=== PATIENT | female | born 1970 | race Caucasian/White ===

== ENCOUNTER 2017-04-30 11:09 | Emergency (ER) | payer MEDICAID ==
[2017-04-30 11:13] VITALS: BP 194/106; PULSE 70; RESP 20; TEMP 98.1; O2SAT 94
[2017-04-30] MEDS ORDERED: VENTAER INH (12:32)
[2017-04-30] MEDS ORDERED: ADVA100A INH (12:32)
--- NOTE | 2017-04-30 12:32 | PD ---
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 She is a history of asthma states normally she has some allergy symptoms. She is on Advair but recently moved to the area and is out of Advair for the past couple months. 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 History Past Medical History Narrative Medical Asthma and allergies Social History Tobacco Use: No Allergies-Medications (Allergen,Severity, Reaction): Coded Allergies: Cantaloupe (Verified Allergy, Severe, swelling, 04/30/17) Review of Systems Except as stated in HPI: all other systems reviewed are Neg Physical Exam Narrative GENERAL: Well-appearing 46 year-old woman, no acute distress. SKIN: Focused skin assessment warm/dry. HEAD: Atraumatic. Normocephalic. EYES: Pupils equal and round. No scleral icterus. No injection or drainage. ENT: No nasal bleeding or discharge. Mucous membranes pink and moist. NECK: Trachea midline. No JVD. CARDIOVASCULAR: Regular rate and rhythm. No murmur appreciated. RESPIRATORY: No accessory muscle use. Clear to auscultation. Breath sounds equal bilaterally. GASTROINTESTINAL: Abdomen soft, non-tender, nondistended. Hepatic and splenic margins not palpable. MUSCULOSKELETAL: No obvious deformities. Data Data Last Documented VS Vital Signs Date Time Temp Pulse Resp B/P Pulse Ox O2 Delivery O2 Flow Rate FiO2 04/30/17 11:13 98.1 70 20 194/106 94 Room Air [facility] Medical Decision Making Medical Screen Exam Complete: Yes Emergency Medical Condition: Yes Differential Diagnosis Asthma, allergic reaction, pneumonitis, other Narrative Course Medical decision-making 46 year-old woman with asthma symptoms, worsening at night. No respiratory distress. No wheezing now. We'll put her back on her Advair. We'll give her a refill on her controller as well. She is currently in the process of establishing with a new primary in the [facility]. Diagnosis Primary Impression: Asthma Additional Instructions: Use Advair daily as prescribed. He is albuterol as needed. Follow-up with your primary doctor soon as available. Med/Other Pt SpecificInfo: Prescription(s) given Scripts Fluticasone-Salmeterol Inh (Advair Diskus Inh)100-50 Mcg/Blist Aer1 Puff INH BID #1 INHALER Ref 2 Rinse mouth after use. Prov:Yosi Zhou MD 04/30/17 Albuterol 18 GM Inh (Ventolin Hfa 18 GM Inh)90 Mcg/Act Aer2 Puff INH Q4-6H PRN ( SHORTNESS OF BREATH) #1 INHALER Prov:Yosi Zhou MD 04/30/17 Disposition: 01 DISCHARGE HOME Condition: Stable Yosi Zhou MD Apr 30, 2017 12:32
== END 2017-04-30 13:01 | disposition home or self-care (01) ==
LOC: NEPD 11:09
DX: J45.909 Unspecified asthma, uncomplicated (principal); Z87.09 Personal history of other diseases of the respiratory system
CPT/HCPCS: 99284